=== PATIENT | male | born 1965 | race Caucasian/White ===

== ENCOUNTER 2016-12-13 10:09 | Emergency (ER) | payer BC ==
[2016-12-13] MEDS ORDERED: IBUPROFEN 600 MG TABLET PO ONE (10:38)
[2016-12-13] MEDS ORDERED: PREDNISONE 20 MG TAB PO ONE (10:38)
[2016-12-13] MEDS ORDERED: IPRATROPIUM/ALBUTEROL (0.5MG/3MG) NEB INH ONE (10:38)
--- NOTE | 2016-12-13 10:43 | Emergency Department Record ---
History of Present Illness - General Chief Complaint: Cough Stated Complaint: COUGHING/FEVER Time Seen by Provider: 12/13/16 10:34 Source: Patient, Family Mode of Arrival: Ambulatory Limitations: No limitations - History of Present Illness Initial Comments: 51 yo male presents with a cough that has been off and on for "3 months". The last day he has developed fevers, cough, congestion, body aches, headaches. He has a history of asthma. He has used his inhaler at home. No NVD. No rash. No sore throat. MD Complaint: Cough, Fever, Nasal congestion, Sinus pain Onset/Timin -: Days(s) Severity scale (1-10): 9 Consistency: Constant Improves With: Nothing Worsens With: Other (cough) Associated Symptoms: Cough, Fever, Headache, Myalgias, Nasal congestion, Rhinorrhea Treatments Prior to Arrival: None - Related Data Home Medications Medication Instructions Recorded Confirmed Last Taken Dicyclomine HCl [Bentyl] 20 mg PO DAILY 03/15/15 12/13/16 1 Day Ago Sumatriptan Succinate [Imitrex] 50 mg PO ASDIR 03/15/15 12/13/16 1 Day Ago Alprazolam [Alprazolam] 0.5 mg PO ASDIR 05/23/16 12/13/16 1 Day Ago Bupropion HCl [Bupropion HCl Sr] 200 mg PO BID 05/23/16 12/13/16 1 Day Ago Cyclobenzaprine HCl [Flexeril] 10 mg PO ASDIR PRN 05/23/16 12/13/16 1 Day Ago Hydrocodone/Acetaminophen 10 mg PO BIDDIUR 05/23/16 12/13/16 1 Day Ago [Hydrocodon-Acetaminophn 10-325] Mirabegron [Myrbetriq] 50 mg PO ASDIR PRN 05/23/16 12/13/16 1 Day Ago Tadalafil [Cialis] 5 mg PO ASDIR PRN 05/23/16 12/13/16 1 Day Ago Tramadol HCl [Tramadol HCl] 50 mg PO ASDIR PRN 05/23/16 12/13/16 1 Day Ago Venlafaxine HCl [Effexor Xr] 75 mg PO DAILY 05/23/16 12/13/16 1 Day Ago Butalb/Acetaminophen/Caffeine 1 tab PO ASDIR 12/13/16 12/13/16 Unknown [Wagnib-Edjyhkwu-Ehek 50-325-40] Levocetirizine Dihydrochloride 5 mg PO DAILY 12/13/16 12/13/16 Unknown [Xyzal] Previous Rx's Medication Instructions Recorded Hydrocodone/Acetaminophen [Ledbetter 1 tab PO Q6H PRN #10 tab 05/23/16 7.5mg/325mg] Azithromycin [Zithromax] 250 mg PO DAILY #4 tab 12/13/16 Methylprednisolone [Medrol Dose 4 mg PO UD #1 tab.ds.pk 12/13/16 Pack] Oseltamivir Phosphate [Tamiflu] 75 mg PO BID #10 capsule 12/13/16 Allergies Allergy/AdvReac Type Severity Reaction Status Date / Time No Known Drug Allergies Allergy Verified 12/09/16 15:19 Travel Screening - Travel/Exposure Within Last 30 Days Have you traveled within the last 30 days?: No Review of Systems Constitutional: Reports: Fever, Malaise. Denies: Chills Eyes: Denies: Eye discharge, Eye pain, Photophobia, Vision change ENT: Reports: Congestion. Denies: Ear pain, Throat pain Respiratory: Reports: Cough, Wheezes. Denies: Dyspnea, Hemoptysis, Stridor Cardiovascular: Denies: Chest pain, Palpitations, Syncope Endocrine: Reports: Fatigue. Denies: Polydipsia, Polyuria Gastrointestinal: Denies: Abdominal pain, Diarrhea, Nausea, Vomiting Genitourinary: Denies: Hematuria, Urgency Musculoskeletal: Reports: Myalgia. Denies: Arthralgia, Back pain, Joint swelling Skin: Denies: Bruising, Change in color, Rash Neurological: Reports: Headache. Denies: Numbness, Tremors, Vertigo, Weakness Psychiatric: Denies: Anxiety Hematological/Lymphatic: Denies: Blood Clots, Easy bleeding, Easy bruising, Swollen glands Past Medical History - SOCIAL HISTORY Smoking Status: Former smoker Alcohol Use: None Drug Use: None - RESPIRATORY Hx Respiratory Disorders: Yes Hx Sleep Apnea: Yes Hx of CPAP: Yes Comment:: seasonal allergies - CARDIOVASCULAR Hx Cardio Disorders: Yes Hx Hypertension: No - NEURO Hx Neuro Disorders: Yes Hx Headaches: Yes Hx of Migraines: Yes (last one 2 days ago) - GI Hx GI Disorders: Yes Hx Reflux: Yes Hx of Polyps: Yes - Hx Genitourinary Disorders: Yes Hx Bladder Problem: Yes Hx Prostate Problems: Yes - ENDOCRINE Hx Endocrine Disorders: No - MUSCULOSKELETAL Hx Musculoskeletal Disorders: No - PSYCH Hx Psych Problems: Yes Hx Anxiety: Yes Hx Depression: Yes - HEMATOLOGY/ONCOLOGY Hx Hematology/Oncology Disorders: Yes Hx Cancer: Yes (skin-basal, squamous cell) Family Medical History Any Significant Family History?: Yes Hx Cancer: Mother Hx Heart Disease: Father Hx HTN: Mother Hx Stroke: Father Physical Exam - General General Appearance: Alert, Oriented x3, Cooperative, No acute distress Limitations: No limitations - Head Head exam: Normal inspection - Eye Eye exam: Normal appearance, PERRL. negative: Conjunctival injection, Periorbital swelling - ENT ENT exam: Normal exam, Mucous membranes moist, Normal orophraynx Ear exam: Normal external inspection. negative: External canal tenderness Nasal Exam: Discharge (clear), Sinus tenderness. negative: Normal inspection Mouth exam: Normal external inspection, Tongue normal Teeth exam: Normal inspection. negative: Dental caries Throat exam: Normal inspection. negative: Tonsillar erythema, Tonsillar exudate - Neck Neck exam: Normal inspection, Full ROM. negative: Lymphadenopathy, Tenderness - Respiratory Respiratory exam: Decreased breath sounds, Prolonged expiratory. negative: Accessory muscle use, Rales, Respiratory distress, Rhonchi, Stridor, Wheezes - Cardiovascular Cardiovascular Exam: Regular rate, Normal rhythm, Normal heart sounds - GI/Abdominal GI/Abdominal exam: Soft. negative: Tenderness - Rectal Rectal exam: Deferred - exam: Deferred - Extremities Extremities exam: Normal inspection, Full ROM, Normal capillary refill. negative: Tenderness - Back Back exam: Reports: Normal inspection, Full ROM. Denies: Muscle spasm, Rash noted, Tenderness - Neurological Neurological exam: Alert, Normal gait, Oriented X3 - Psychiatric Psychiatric exam: Normal affect, Normal mood - Skin Skin exam: Dry, Intact, Normal color, Warm Course Vital Signs 12/13/16 10:13 Temperature 98.8 F Pulse Rate 94 H Respiratory 20 Rate Blood Pressure 117/79 Pulse Ox 94 L - Reevaluation(s) Reevaluation #1: Influenza is negative Depo-Medrol ordered 12/13/16 11:15 Reevaluation #2: CXR was negative Given his cough, body aches and onset in the last day I explained that I recommend Tamiflu in the event we have a false positive swab He will treated with steroids and Zithromax in the event this is bacteria we discussed close follow up and reasons to return to the ED 12/13/16 11:32 Disposition Disposition: Discharge Clinical Impression: Bronchitis Sinusitis Qualifiers: Sinusitis location: frontal Chronicity: acute Recurrence: non-recurrent Qualified Code(s): J01.10 - Acute frontal sinusitis, unspecified Disposition: Home, Self-Care Condition: (1) Good Instructions: Sinusitis (ED), Acute Bronchitis (ED) Additional Instructions: Rest and stay well hydrated Return if worse, fever, vomiting, short of breath or any new concerns. Prescriptions: Methylprednisolone [Medrol Dose Pack] 4 mg PO UD #1 tab.ds.pk Oseltamivir Phosphate [Tamiflu] 75 mg PO BID #10 capsule Azithromycin [Zithromax] 250 mg PO DAILY #4 tab Forms: Patient Portal Access Time of Disposition: 11:35
[2016-12-13 10:56] LABS: INFLUENZA A NEGATIVE (NEGATIVE); INFLUENZA B NEGATIVE (NEGATIVE)
[2016-12-13] MEDS ORDERED: METHYLPREDNISOLONE 80MG/VIAL IM ONE (11:18)
[2016-12-13] MEDS ORDERED: OSTELTAMIVIR 75 MG CAP PO ONE (11:31)
[2016-12-13] MEDS ORDERED: AZITHROMYCIN 500 MG TABLET PO ONE (11:31)
--- NOTE | 2016-12-18 10:01 | RADIOLOGY REPORT ---
EXAM: CHEST, TWO VIEWS HISTORY: COUGH. TECHNIQUE: Frontal and lateral views of the chest were obtained. Comparison: 11/08/06 chest. FINDINGS: The heart size is normal. Minimal scarring in the left lung base. The lungs are otherwise clear. No pneumothorax. IMPRESSION: NO ACUTE CARDIOPULMONARY PROCESS. JOB NUMBER: [id number] [facility]
== END 2016-12-13 11:56 | disposition home or self-care (01) ==
LOC: ER 10:09
DX: J20.9 Acute bronchitis, unspecified (principal); J01.10 Acute frontal sinusitis, unspecified
CPT/HCPCS: 71020; 87400; 94640; 96372; 99283; 99284; J1040

== ENCOUNTER 2017-04-27 13:05 | Emergency (ER) | payer BC ==
--- NOTE | 2017-04-27 13:25 | Emergency Department Record ---
History of Present Illness - General Chief complaint: Extremity Problem Stated complaint: RED SPOT ON LEFT LEG Time Seen by Provider: 04/27/17 13:13 Source: Patient, Family Mode of Arrival: Ambulatory Limitations: No limitations - History of Present Illness Initial comments: 51 yo male presents with a rash to the left lower calf that started yesterday. No trauma. He does not recall a bite or insect sting. It is somewhat achy. It does not itch significantly. He has some associated calf pain. No cough or chest pain. He denies history of DVT. There is a strong family history of DVT. No blistering, no vesicles. No weeping. No calf swelling today. PCP Hankenson. BARCENAS Complaint: Extremity pain, Other (left leg rash) Onset/Timin -: Days(s) Location: Left, Lower Leg History of Same: No Radiation: None Quality: Aching, Dull Consistency: Constant Improves with: Nothing Worsens with: Nothing Associated Symptoms: Denies other symptoms - Related Data Home Medications Medication Instructions Recorded Confirmed Last Taken Dicyclomine HCl [Bentyl] 20 mg PO DAILY 03/15/15 04/27/17 1 Day Ago ~12/08/16 Sumatriptan Succinate [Imitrex] 50 mg PO ASDIR 03/15/15 04/27/17 1 Day Ago ~12/08/16 Alprazolam [Alprazolam] 0.5 mg PO ASDIR 05/23/16 04/27/17 1 Day Ago ~12/08/16 Bupropion HCl [Bupropion HCl Sr] 200 mg PO BID 05/23/16 04/27/17 1 Day Ago ~12/08/16 Cyclobenzaprine HCl [Flexeril] 10 mg PO ASDIR PRN 05/23/16 04/27/17 1 Day Ago ~12/08/16 Hydrocodone/Acetaminophen 10 mg PO BIDDIUR 05/23/16 04/27/17 1 Day Ago [Hydrocodon-Acetaminophn 10-325] ~12/08/16 Mirabegron [Myrbetriq] 50 mg PO ASDIR PRN 05/23/16 04/27/17 1 Day Ago ~12/08/16 Tadalafil [Cialis] 5 mg PO ASDIR PRN 05/23/16 04/27/17 1 Day Ago ~12/08/16 Tramadol HCl [Tramadol HCl] 50 mg PO ASDIR PRN 05/23/16 04/27/17 1 Day Ago ~12/08/16 Venlafaxine HCl [Effexor Xr] 75 mg PO DAILY 05/23/16 04/27/17 1 Day Ago ~12/08/16 Butalb/Acetaminophen/Caffeine 1 tab PO ASDIR 12/13/16 04/27/17 Unknown [Owlddv-Zbvhvfbz-Qerw 50-325-40] Levocetirizine Dihydrochloride 5 mg PO DAILY 12/13/16 04/27/17 Unknown [Xyzal] Previous Rx's Medication Instructions Recorded Hydrocodone/Acetaminophen [Corwith 1 tab PO Q6H PRN #10 tab 05/23/16 7.5mg/325mg] Cephalexin [Keflex] 500 mg PO TID #21 cap 04/27/17 Methylprednisolone [Medrol Dose 4 mg PO DAILY #1 tab.ds.pk 04/27/17 Pack] Allergies Allergy/AdvReac Type Severity Reaction Status Date / Time No Known Drug Allergies Allergy Verified 12/09/16 15:19 Travel Screening - Travel/Exposure Within Last 30 Days Have you traveled within the last 30 days?: No Review of Systems Constitutional: Denies: Chills, Fever, Malaise, Weakness Eyes: Denies: Eye discharge, Eye pain, Photophobia, Vision change ENT: Denies: Congestion, Throat pain Respiratory: Denies: Cough, Dyspnea, Hemoptysis, Stridor, Wheezes Cardiovascular: Denies: Chest pain, Palpitations, Syncope Endocrine: Denies: Fatigue, Polydipsia, Polyuria Gastrointestinal: Denies: Abdominal pain, Diarrhea, Nausea, Vomiting Genitourinary: Denies: Dysuria, Frequency, Hematuria, Urgency Musculoskeletal: Denies: Arthralgia, Back pain, Joint swelling, Myalgia Skin: Reports: As per HPI, Change in color, Rash Neurological: Denies: Headache, Numbness, Weakness Psychiatric: Denies: Anxiety Hematological/Lymphatic: Denies: Anemia, Blood Clots, Easy bleeding, Easy bruising, Swollen glands Past Medical History - SOCIAL HISTORY Smoking Status: Former smoker - RESPIRATORY Hx Respiratory Disorders: Yes Hx Sleep Apnea: Yes Hx of CPAP: Yes Comment:: seasonal allergies - CARDIOVASCULAR Hx Cardio Disorders: Yes Hx Hypertension: No - NEURO Hx Neuro Disorders: Yes Hx Headaches: Yes Hx of Migraines: Yes (last one 2 days ago) - GI Hx GI Disorders: Yes Hx Reflux: Yes Hx of Polyps: Yes - Hx Genitourinary Disorders: Yes Hx Bladder Problem: Yes Hx Prostate Problems: Yes - ENDOCRINE Hx Endocrine Disorders: No - MUSCULOSKELETAL Hx Musculoskeletal Disorders: No - PSYCH Hx Psych Problems: Yes Hx Anxiety: Yes Hx Depression: Yes - HEMATOLOGY/ONCOLOGY Hx Hematology/Oncology Disorders: Yes Hx Cancer: Yes (skin-basal, squamous cell) Family Medical History Any Significant Family History?: Yes Hx Cancer: Mother Hx Heart Disease: Father Hx HTN: Mother Hx Stroke: Father Physical Exam - General General Appearance: Alert, Oriented x3, Cooperative, No acute distress Limitations: No limitations - Head Head exam: Normal inspection - Eye Eye exam: Normal appearance - ENT ENT exam: Normal exam Ear exam: Normal external inspection Nasal Exam: Normal inspection Mouth exam: Normal external inspection - Neck Neck exam: Normal inspection - Rectal Rectal exam: Deferred - exam: Deferred - Extremities Extremities exam: Calf tenderness (mild over the rash), Full ROM, Normal capillary refill. negative: Normal inspection, Pedal edema, Tenderness Image of Full Body: 1 - patchy, erythematous, flat rash to the mid distal LLE, no abnormal warmth, no blisters or vesicle, superficial feeling on palpation, most CW superficial vasculitis. - Back Back exam: Reports: Normal inspection - Neurological Neurological exam: Alert, Oriented X3 - Psychiatric Psychiatric exam: Normal affect, Normal mood - Skin Skin exam: Erythema, Intact, Petechiae. negative: Cyanosis, Diaphoretic, Mottled Distribution of rash: LLE Description of rash: Macular, Petechial. negative: Blisters, Bullous, Fluctuant , Indurated, Urticarial, Vesicular Course Vital Signs 04/27/17 13:10 Temperature 98.2 F Pulse Rate 88 Respiratory 20 Rate Blood Pressure 124/79 Pulse Ox 99 - Reevaluation(s) Reevaluation #1: The labs were reviewed No acute changes on CBC CRP is mildly elevated at 1.9 as is the D-dimer at 0.9 I discussed the results with the patient I do recommend a lower leg doppler to rule out DVT given his strong family history of 4 out of 7 siblings with DVT/PE. [place] [facility] [place] Norman who accepts the patient for a doppler. 04/27/17 13:59 Medical Decision Making - Lab Data Result diagrams: 04/27/17 13:25 04/27/17 13:25 Disposition Disposition: Transfer Clinical Impression: Rash, Pain of left calf Transfer To: [facility] Reason For Transfer: No doppler at [facility] Accepting Physician: Emerson Time Discussed w/Accepting Physician: 14:09 Condition: (1) Good Instructions: Acute Rash (ED) Additional Instructions: Go directly to [facility] ER for an US of the leg Call your doctor tomorrow for close follow up this week Prescriptions: Cephalexin [Keflex] 500 mg PO TID #21 cap Methylprednisolone [Medrol Dose Pack] 4 mg PO DAILY #1 tab.ds.pk Forms: Patient Portal Access Time of Disposition: 14:11 Quality - Quality Measures Quality Measures: N/A - Blood Pressure Screening View Details: Yes Blood Pressure Classification: Pre-Hypertensive BP Reading Systolic Measurement: 124 Diastolic Measurement: 79 Screening for High Blood Pressure: < Pre-Hypertensive BP, F/U Documented > [ G8950] Pre-Hypertensive Follow-up Interventions: Referral to alternative/primary care provider.
[2017-04-27 13:31] LABS: BASO % 0.8 % (0-6); EOS % 5.3 % (0-6); GRAN % 51.2 % (47-80); HEMATOCRIT 40.4 % (42.0-52.0); HEMOGLOBIN 13.7 gm/dl (14.0-18.0); LYMPH % 34.8 % (16-45); MEAN CELL VOLUME 93.1 fl (81-97); MEAN CORPUSCULAR HGB CONC 33.9 g/dl (32-36); MEAN PLATELET VOLUME 9.1 fl (7.4-10.4); MONO % 7.9 % (0-9); PLATELET COUNT 347 K/uL (130-400); RED BLOOD COUNT 4.34 M/uL (4.40-5.70); RED CELL DISTRIBUTION WIDTH 13.3 % (11.5-14.5); WHITE BLOOD COUNT W/O DIFF 6.5 K/uL (4.2-12.2)
[2017-04-27 13:32] LABS: MEAN CORPUSCULAR HEMOGLOBIN 31.5 pg (27-33)
[2017-04-27 13:45] LABS: ANION GAP 7.8 (7-16); BLOOD UREA NITROGEN 17 mg/dL (9-20); C-REACTIVE PROTEIN 1.9 mg/dL (0.0-0.9); CARBON DIOXIDE 23.2 mmol/L (22-30); CREATININE 0.9 mg/dL (0.66-1.25); EST GLOMERULAR FILTRATION RATE > 60 ml/min; GLUCOSE,RANDOM 119 mg/dL (70-110)
== END 2017-04-27 14:32 | disposition short-term general hospital (02) ==
LOC: ER 13:05
DX: M79.662 Pain in left lower leg (principal); R21 Rash and other nonspecific skin eruption
CPT/HCPCS: 80048; 85025; 85379; 86140; 99283

== ENCOUNTER 2018-02-27 10:48 | Emergency (ER) | payer BC ==
--- NOTE | 2018-02-27 11:08 | Emergency Department Record ---
History of Present Illness - General Chief Complaint: Ankle/Foot Injury Stated Complaint: RIGHT HEEL PAIN Time Seen by Provider: 02/27/18 10:49 Source: Patient Mode of Arrival: Ambulatory Limitations: No limitations - History of Present Illness Initial Comments: The patient is here for R heel pain for 5-6 weeks. The pain is worse at the end of the day at work. He denies any injury or trauma and states the Naprosyn is not helping. The patient was unable to see his PCP so he decided to come to the ER. MD Complaint: Other Onset/Timin -: Week(s) Place: Home Severity scale (1-10): 6 Improves With: Nothing Worsens With: Weight bearing Associated Symptoms: Ambulatory - Related Data Home Medications Medication Instructions Recorded Confirmed Last Taken Cyclobenzaprine HCl 10 mg PO TIDAC PRN 02/27/18 02/27/18 Unknown Naproxen 500 mg PO BID 02/27/18 02/27/18 Unknown Allergies Allergy/AdvReac Type Severity Reaction Status Date / Time No Known Drug Allergies Allergy Verified 12/09/16 15:19 Travel Screening - Travel/Exposure Within Last 30 Days Have you traveled within the last 30 days?: No Review of Systems Constitutional: Denies: Chills, Fever Eyes: Denies: Eye discharge ENT: Denies: Congestion Respiratory: Denies: Cough, Dyspnea Past Medical History - SOCIAL HISTORY Smoking Status: Former smoker - RESPIRATORY Hx Respiratory Disorders: Yes Hx Sleep Apnea: Yes Hx of CPAP: Yes Comment:: seasonal allergies - CARDIOVASCULAR Hx Cardio Disorders: Yes Hx Hypertension: No - NEURO Hx Neuro Disorders: Yes Hx Headaches: Yes Hx of Migraines: Yes (last one 2 days ago) - GI Hx GI Disorders: Yes Hx Reflux: Yes Hx of Polyps: Yes - Hx Genitourinary Disorders: Yes Hx Bladder Problem: Yes Hx Prostate Problems: Yes - ENDOCRINE Hx Endocrine Disorders: No - MUSCULOSKELETAL Hx Musculoskeletal Disorders: No - PSYCH Hx Psych Problems: Yes Hx Anxiety: Yes Hx Depression: Yes - HEMATOLOGY/ONCOLOGY Hx Hematology/Oncology Disorders: Yes Hx Cancer: Yes (skin-basal, squamous cell) Family Medical History Any Significant Family History?: Yes Hx Cancer: Mother Hx Heart Disease: Father Hx HTN: Mother Hx Stroke: Father Physical Exam - General General Appearance: Alert, Oriented x3, Cooperative, No acute distress - Head Head exam: Atraumatic, Normocephalic, Normal inspection - Eye Eye exam: Normal appearance, PERRL - Extremities Extremities exam: Normal inspection (There is not swelling, erythema, or bruising. ), Full ROM, Normal capillary refill, Other (the achilles tendon is nontender.). negative: Joint swelling, Pedal edema, Tenderness (There is no specific tenderness to palpation over the calcaneus.) Course Vital Signs 02/27/18 10:51 Temperature 98.0 F Pulse Rate 71 Respiratory 18 Rate Blood Pressure 133/91 Pulse Ox 96 - Reevaluation(s) Reevaluation #1: I did discuss the issues with the patient and the need for F/U with Dr. Alexis. He understands and will F/U. 02/27/18 11:44 Medical Decision Making - Data Complexity MDM Data: X-Ray Ordered and/or Reviewed (L Foot: Neg.) Disposition Disposition: Discharge Clinical Impression: Chronic heel pain Qualifiers: Laterality: left Qualified Code(s): M79.672 - Pain in left foot Disposition: Home, Self-Care Condition: (2) Stable Instructions: Arthralgia (ED) Additional Instructions: Please continue your regular home medicines and see your family doctor Friday as planned and also Dr. Alexis on Friday if possible. Please ice the area when possible and use a heel cup. Return to the ER for any worsening symptoms. Referrals: [facility] [Provider Group] Forms: Patient Portal Access Time of Disposition: 11:39 Quality - Quality Measures Quality Measures: N/A - Blood Pressure Screening View Details: Yes Does Patient Have Any of the Following: No Blood Pressure Classification: Hypertensive Reading Systolic Measurement: 133 Diastolic Measurement: 91 Screening for High Blood Pressure: < First Hypertensive BP, F/U Documented > [ G8950] First Hypertensive Follow-up Interventions: Referral to alternative/primary care provider.
--- NOTE | 2018-03-01 10:17 | RADIOLOGY REPORT ---
DATE: 02/27/2018. EXAM: RIGHT FOOT. HISTORY: Injury. TECHNIQUE: Three views of the right foot were performed. FINDINGS: No evidence of fracture or dislocation. No lytic or blastic lesion. Small calcaneal spur. IMPRESSION: NO EVIDENCE OF FRACTURE OR DISLOCATION. A SMALL CALCANEAL SPUR. JOB NUMBER: [id number] MTDD
== END 2018-02-27 11:45 | disposition home or self-care (01) ==
LOC: ER 10:48
DX: M79.671 Pain in right foot (principal); G89.29 Other chronic pain; Z87.891 Personal history of nicotine dependence
CPT/HCPCS: 99283

== ENCOUNTER 2018-05-31 15:36 | Emergency (ER) | payer BC ==
--- NOTE | 2018-05-31 16:03 | Emergency Department Record ---
History of Present Illness - General Chief complaint: Poison karine/oak/sumac exposure Stated complaint: POISON KARINE Time Seen by Provider: 05/31/18 16:00 Source: Patient, RN notes reviewed Mode of Arrival: Ambulatory - History of Present Illness Initial comments: rash for 2 days and itchy and working in the yard Onset/Timin -: Hour(s) Location: Generalized Quality: Other Consistency: Constant Improves with: None Worsens with: None Context: Other Associated symptoms: Itching Treatments Prior to Arrival: None - Related Data Previous Rx's Medication Instructions Recorded Prednisone [Prednisone 10Mg] 10 mg PO ASDIR #30 tab 05/31/18 Allergies Allergy/AdvReac Type Severity Reaction Status Date / Time No Known Drug Allergies Allergy Verified 05/31/18 15:41 Travel Screening - Travel/Exposure Within Last 30 Days Have you traveled within the last 30 days?: Yes Location Detail:: [place] - Travel/Exposure Within Last Year Have you traveled outside the [place] in the last year?: No - Additonal Travel Details Have you been exposed to anyone with a communicable illness?: No - Travel Symptoms Symptom Screening: None Review of Systems Reviewed: No additional complaints except as noted below Constitutional: Reports: As per HPI. Denies: Chills, Fever, Malaise, Night sweats, Weakness, Weight change Eyes: Reports: As per HPI. Denies: Eye discharge, Eye pain, Photophobia, Vision change ENT: Reports: As per HPI. Denies: Congestion, Dental pain, Ear pain, Epistaxis , Hearing loss, Throat pain Respiratory: Reports: As per HPI. Denies: Cough, Dyspnea, Hemoptysis, Stridor, Wheezes Cardiovascular: Reports: As per HPI. Denies: Arrhythmia, Chest pain, Dyspnea on exertion, Edema, Murmurs, Orthopnea, Palpitations, Paroxysmal nocturnal dyspnea, Rheumatic Fever, Syncope Endocrine: Reports: As per HPI. Denies: Fatigue, Heat or cold intolerance, Polydipsia, Polyuria Gastrointestinal: Reports: As per HPI. Denies: Abdominal pain, Constipation, Diarrhea, Hematemesis, Hematochezia, Melena, Nausea, Vomiting Genitourinary: Reports: As per HPI. Denies: Dysuria, Frequency, Hematuria, Incontinence, Retention, Testicular pain, Testicular mass, Urgency Musculoskeletal: Reports: As per HPI. Denies: Arthralgia, Back pain, Gout, Joint swelling, Myalgia, Neck pain Skin: Reports: As per HPI, Rash. Denies: Bruising, Change in color, Change in hair/nails, Lesions, Pruritus Neurological: Reports: As per HPI. Denies: Abnormal gait, Confusion, Headache, Numbness, Paresthesias, Seizure, Tingling, Tremors, Vertigo, Weakness Psychiatric: Reports: As per HPI. Denies: Anxiety, Auditory hallucinations, Depression, Homicidal thoughts, Suicidal thoughts, Visual hallucinations Hematological/Lymphatic: Reports: As per HPI. Denies: Anemia, Blood Clots, Easy bleeding, Easy bruising, Swollen glands Past Medical History - SOCIAL HISTORY Smoking Status: Former smoker Alcohol Use: None Drug Use: None - RESPIRATORY Hx Respiratory Disorders: Yes Hx Sleep Apnea: Yes Hx of CPAP: Yes Comment:: seasonal allergies - CARDIOVASCULAR Hx Cardio Disorders: Yes Hx Hypertension: No - NEURO Hx Neuro Disorders: Yes Hx Headaches: Yes Hx of Migraines: Yes (last one 2 days ago) - GI Hx GI Disorders: Yes Hx Reflux: Yes Hx of Polyps: Yes - Hx Genitourinary Disorders: Yes Hx Bladder Problem: Yes Hx Prostate Problems: Yes - ENDOCRINE Hx Endocrine Disorders: No - MUSCULOSKELETAL Hx Musculoskeletal Disorders: No - PSYCH Hx Psych Problems: Yes Hx Anxiety: Yes Hx Depression: Yes - HEMATOLOGY/ONCOLOGY Hx Hematology/Oncology Disorders: Yes Hx Cancer: Yes (skin-basal, squamous cell) Family Medical History Any Significant Family History?: Yes Hx Cancer: Mother Hx Heart Disease: Father Hx HTN: Mother Hx Stroke: Father Physical Exam - General General Appearance: Alert, Oriented x3, Cooperative, No acute distress - Head Head exam: Normal inspection - Eye Eye exam: Normal appearance, PERRL Pupils: Normal accommodation - ENT ENT exam: Normal exam, Mucous membranes moist, Normal external ear exam, Normal orophraynx, TM's normal bilaterally Ear exam: Normal external inspection. negative: External canal tenderness Nasal Exam: Normal inspection. negative: Discharge, Sinus tenderness Mouth exam: Normal external inspection, Tongue normal Teeth exam: Normal inspection. negative: Dental caries Throat exam: Normal inspection. negative: Tonsillar erythema, Tonsillar exudate - Neck Neck exam: Normal inspection, Full ROM. negative: Tenderness - Respiratory Respiratory exam: Normal lung sounds bilaterally. negative: Respiratory distress - Cardiovascular Cardiovascular Exam: Regular rate, Normal rhythm, Normal heart sounds - GI/Abdominal GI/Abdominal exam: Soft, Normal bowel sounds. negative: Tenderness - Rectal Rectal exam: Deferred - exam: Deferred - Extremities Extremities exam: Normal inspection, Full ROM, Normal capillary refill. negative: Tenderness - Back Back exam: Reports: Normal inspection, Full ROM. Denies: Muscle spasm, Rash noted, Tenderness - Neurological Neurological exam: Alert, Normal gait, Oriented X3, Reflexes normal - Psychiatric Psychiatric exam: Normal affect, Normal mood - Skin Skin exam: Rash (reash of poison karine, on both arms and the right flank area) Course Vital Signs 05/31/18 15:44 Temperature 98.2 F Pulse Rate 82 Respiratory 18 Rate Blood Pressure 136/79 Pulse Ox 99 Disposition Clinical Impression: Poison karine dermatitis Disposition: Home, Self-Care Condition: (1) Good Instructions: Poison Karine (ED) Additional Instructions: calamine lotion as needed benadryl or claritan pills for itching follow up with Dr. Hudson in 5 days Prescriptions: Prednisone [Prednisone 10Mg] 10 mg PO ASDIR #30 tab Forms: Patient Portal Access Time of Disposition: 16:08 Quality - Quality Measures Quality Measures: N/A - Blood Pressure Screening Does Patient Have Any of the Following: No Blood Pressure Classification: Pre-Hypertensive BP Reading Systolic Measurement: 136 Diastolic Measurement: 79 Screening for High Blood Pressure: < Pre-Hypertensive BP, F/U Documented > [ G8950] Pre-Hypertensive Follow-up Interventions: Referral to alternative/primary care provider.
[2018-05-31] MEDS ORDERED: METHYLPREDNISOLONE 80MG/VIAL IM ONE (16:09)
== END 2018-05-31 16:28 | disposition home or self-care (01) ==
LOC: ER 15:36
DX: L23.7 Allergic contact dermatitis due to plants, except food (principal); Z87.891 Personal history of nicotine dependence
CPT/HCPCS: 96372; 99282; 99283; J1040

== ENCOUNTER 2018-06-29 15:01 | Emergency (ER) | payer BC ==
[2018-06-29] MEDS ORDERED: KETOROLAC 30 MG/ML VIAL IVP ONE (15:16)
[2018-06-29] MEDS ORDERED: DIPHENHYDRAMINE HCL 50 MG/ML VIAL IVP ONE (15:16)
--- NOTE | 2018-06-29 15:16 | Emergency Department Record ---
History of Present Illness - General Chief Complaint: Headache Migraine Stated Complaint: MIGRAINE Time Seen by Provider: 06/29/18 15:05 Source: Patient, Family Mode of Arrival: Ambulatory Limitations: No limitations - History of Present Illness Initial Comments: 52 yo male presents with a headache typical of his migraine headaches. He awoke yesterday with the migraine. He has about a 20+ year history of migraines. The fall is a seasonal time when migraines do occur more frequently for him. He has some nausea and vomiting. No fever. He is light sensitive. No new or different symptoms. No fever. No recent head injuries or illness. Odors such as cologne make it worse which is a typical feature. MD Complaint: "Migraine" -: Days(s) (1) Onset Description: Gradual, Awoke with symptoms Location: Frontal, Occipital Severity: Moderate Quality: Aching, Similar to previous headaches Consistency: Constant Improves With: Rest Worsens With: Light, Noise, Other (Oders) Context: Other Associated Symptoms: Nausea Treatments Prior to Arrival: Migraine medication - Related Data Allergies Allergy/AdvReac Type Severity Reaction Status Date / Time No Known Drug Allergies Allergy Verified 06/29/18 15:09 Review of Systems Constitutional: Denies: Chills, Fever, Malaise, Weakness Eyes: Reports: Photophobia. Denies: Eye discharge, Eye pain ENT: Denies: Congestion, Throat pain Respiratory: Denies: Cough, Dyspnea, Hemoptysis Cardiovascular: Denies: Chest pain, Palpitations, Syncope Endocrine: Denies: Fatigue Gastrointestinal: Reports: Nausea. Denies: Abdominal pain, Diarrhea Genitourinary: Denies: Dysuria, Frequency, Hematuria Musculoskeletal: Denies: Arthralgia, Back pain, Myalgia, Neck pain Skin: Denies: Bruising, Change in color, Rash Neurological: Reports: Headache. Denies: Abnormal gait, Confusion, Numbness, Tingling, Vertigo, Weakness Psychiatric: Denies: Anxiety Hematological/Lymphatic: Denies: Blood Clots, Easy bleeding, Easy bruising Past Medical History - SOCIAL HISTORY Smoking Status: Former smoker Drug Use: None - RESPIRATORY Hx Respiratory Disorders: Yes Hx Sleep Apnea: Yes Hx of CPAP: Yes Comment:: seasonal allergies - CARDIOVASCULAR Hx Cardio Disorders: Yes Hx Hypertension: No - NEURO Hx Neuro Disorders: Yes Hx Headaches: Yes Hx of Migraines: Yes (last one 2 days ago) - GI Hx GI Disorders: Yes Hx Reflux: Yes Hx of Polyps: Yes - Hx Genitourinary Disorders: Yes Hx Bladder Problem: Yes Hx Prostate Problems: Yes - ENDOCRINE Hx Endocrine Disorders: No - MUSCULOSKELETAL Hx Musculoskeletal Disorders: No - PSYCH Hx Psych Problems: Yes Hx Anxiety: Yes Hx Depression: Yes - HEMATOLOGY/ONCOLOGY Hx Hematology/Oncology Disorders: Yes Hx Cancer: Yes (skin-basal, squamous cell) Family Medical History Hx Cancer: Mother Hx Heart Disease: Father Hx HTN: Mother Hx Stroke: Father Physical Exam - General General Appearance: Alert, Oriented x3, Cooperative, No acute distress Limitations: No limitations - Head Head exam: Atraumatic, Normocephalic, Normal inspection - Eye Eye exam: Normal appearance, PERRL, EOMI. negative: Conjunctival injection, Nystagmus, Periorbital swelling - ENT ENT exam: Normal exam Ear exam: Normal external inspection Nasal Exam: Normal inspection Mouth exam: Normal external inspection - Neck Neck exam: Normal inspection. negative: Meningismus, Tenderness - Respiratory Respiratory exam: Normal lung sounds bilaterally. negative: Respiratory distress - Cardiovascular Cardiovascular Exam: Regular rate, Normal rhythm, Normal heart sounds Peripheral Pulses: 2+: Radial (R), Radial (L) - GI/Abdominal GI/Abdominal exam: Soft. negative: Tenderness - Rectal Rectal exam: Deferred - exam: Deferred - Extremities Extremities exam: Normal inspection, Full ROM, Normal capillary refill. negative: Pedal edema, Tenderness - Back Back exam: Denies: CVA tenderness (R), CVA tenderness (L) - Neurological Neurological exam: Alert, CN II-XII intact, Normal gait, Oriented X3. negative : Altered, Motor sensory deficit - Psychiatric Psychiatric exam: Normal affect, Normal mood. negative: Agitated, Anxious - Skin Skin exam: Dry, Intact, Normal color, Warm. negative: Abrasion, Cyanosis, Diaphoretic, Erythema, Mottled Course - Reevaluation(s) Reevaluation #1: 06/29/18 16:26 The patient is getting some relief but not full relief at this time. Nausea is much improved. 06/29/18 17:00 The symptoms are now controlled and he is ready for DC Decadron provided prior to DC as well. We discussed home care and reasons to return to the ED as well as follow up with the PCP Disposition Disposition: Discharge Clinical Impression: Migraine Qualifiers: Migraine type: unspecified Status migrainosus presence: without status migrainosus Intractability: not intractable Qualified Code(s): G43.909 - Migraine, unspecified, not intractable, without status migrainosus Disposition: Home, Self-Care Condition: (1) Good Instructions: Migraine Headache (ED) Additional Instructions: Call your family doctor. Call to schedule the next available appointment for a recheck. Return to ED if your symptoms worsen or if you have any new concerns. Review the final Emergency Record and test results with your doctor on follow up Forms: Patient Portal Access Time of Disposition: 17:00 Quality - Quality Measures Quality Measures: N/A, Headache (All Ages) - Headache: Neuroimaging Quality Measure: Measure #419: Overuse of Neuroimaging ICD10 Codes Entered: Yes Neurological Exam: Patient had a normal neurological exam. [G9535] Headache: Use of Neuroimaging: < CTA, CT, MRA or MRI was NOT ordered > [G9534] - Blood Pressure Screening Does Patient Have Any of the Following: No Blood Pressure Classification: Hypertensive Reading Systolic Measurement: 140 Diastolic Measurement: 95 Screening for High Blood Pressure: < Pre-Hypertensive BP, F/U Documented > [ G8950] Pre-Hypertensive Follow-up Interventions: Referral to alternative/primary care provider.
[2018-06-29] MEDS ORDERED: ONDANSETRON HCL IV 4 MG/2 ML VIAL IVP ONE (15:18)
[2018-06-29] MEDS ORDERED: HYDROMORPHONE HCL 2 MG/ML VIAL IVP ONE (16:26)
[2018-06-29] MEDS ORDERED: DEXAMETHASONE SOD PHOSPHATE 10MG/ML VIAL IVP ONE (16:58)
== END 2018-06-29 17:27 | disposition home or self-care (01) ==
LOC: ER 15:01
DX: G43.909 Migraine, unspecified, not intractable, without status migrainosus (principal); R11.2 Nausea with vomiting, unspecified; Z87.891 Personal history of nicotine dependence
CPT/HCPCS: 99284 ×2; 96374; 96375; J1885; J2405; J1170; J1100; J1200

== ENCOUNTER 2019-01-22 16:18 | Emergency (ER) | payer BC ==
--- NOTE | 2019-01-22 16:39 | Emergency Department Record ---
History of Present Illness - General Chief Complaint: Ankle/Foot Injury Stated Complaint: HEEL PAIN Source: Patient Mode of Arrival: Ambulatory Limitations: No limitations - History of Present Illness Initial Comments: 53 yo male presents with 3 weeks of right heel pain. He denies any specific injury. No fever, chills, redness, or swelling. No abnormal warmth. In the past he had plantar fasciitis. He feels like this is different. No weakness, numbness or tingling. No other joints hurt or pain. No history of gout. No achilles pain or tenderness. No dorsal foot tenderness. MD Complaint: Other (Heel pain) Onset/Timin -: Week(s) Injury: Foot: Right Type of Injury: Unknown Severity: Moderate Improves With: Nothing Worsens With: Nothing Associated Symptoms: Able to partially bear weight - Related Data Allergies Allergy/AdvReac Type Severity Reaction Status Date / Time No Known Drug Allergies Allergy Verified 01/22/19 16:22 Travel Screening - Travel/Exposure Within Last 30 Days Have you traveled within the last 30 days?: Yes Location Detail:: [place] - Travel/Exposure Within Last Year Have you traveled outside the [place] in the last year?: No - Additonal Travel Details Have you been exposed to anyone with a communicable illness?: No - Travel Symptoms Symptom Screening: None Review of Systems Constitutional: Denies: Chills, Fever, Malaise, Weakness Eyes: Denies: Eye discharge ENT: Denies: Congestion, Throat pain Respiratory: Denies: Cough Cardiovascular: Denies: Chest pain, Syncope Endocrine: Denies: Fatigue Gastrointestinal: Denies: Abdominal pain, Diarrhea, Nausea, Vomiting Genitourinary: Denies: Dysuria Musculoskeletal: Reports: As per HPI, Arthralgia Skin: Denies: Bruising, Change in color, Rash Neurological: Denies: Numbness, Tingling Psychiatric: Denies: Anxiety Past Medical History - SOCIAL HISTORY Smoking Status: Former smoker Drug Use: None - RESPIRATORY Hx Respiratory Disorders: Yes Hx Sleep Apnea: Yes Hx of CPAP: Yes Comment:: seasonal allergies - CARDIOVASCULAR Hx Cardio Disorders: Yes Hx Hypertension: No - NEURO Hx Neuro Disorders: Yes Hx Headaches: Yes Hx of Migraines: Yes (last one 2 days ago) - GI Hx GI Disorders: Yes Hx Reflux: Yes Hx of Polyps: Yes - Hx Genitourinary Disorders: Yes Hx Bladder Problem: Yes Hx Prostate Problems: Yes - ENDOCRINE Hx Endocrine Disorders: No - MUSCULOSKELETAL Hx Musculoskeletal Disorders: No - PSYCH Hx Psych Problems: Yes Hx Anxiety: Yes Hx Depression: Yes - HEMATOLOGY/ONCOLOGY Hx Hematology/Oncology Disorders: Yes Hx Cancer: Yes (skin-basal, squamous cell) Family Medical History Hx Cancer: Mother Hx Heart Disease: Father Hx HTN: Mother Hx Stroke: Father Physical Exam - General General Appearance: Alert, Oriented x3, Cooperative, No acute distress Limitations: No limitations - Head Head exam: Atraumatic, Normal inspection - Eye Eye exam: Normal appearance - ENT ENT exam: Normal exam Ear exam: Normal external inspection Nasal Exam: Normal inspection Mouth exam: Normal external inspection - Neck Neck exam: Normal inspection - Cardiovascular Peripheral Pulses: 2+: Dorsalis Pedis (R) - Extremities Extremities exam: Normal inspection, Full ROM, Normal capillary refill, Tenderness. negative: Calf tenderness, Joint swelling, Pedal edema Image of Feet: 1 - normal inspection, tender to palpation, no abnormal warmth or redness. The remainder of the foot is non tender and normal inspection - Back Back exam: Reports: Full ROM - Neurological Neurological exam: Alert, Oriented X3 - Psychiatric Psychiatric exam: Normal affect, Normal mood. negative: Agitated, Anxious - Skin Skin exam: Dry, Intact, Normal color, Warm. negative: Cyanosis, Erythema, Mottled, Pallor, Rash, Urticaria, Vesicles Type of lesion: negative: Abscess Course Vital Signs 01/22/19 16:29 Temperature 98.2 F Pulse Rate 78 Respiratory 18 Rate Blood Pressure 130/93 Pulse Ox 97 Disposition Disposition: Discharge Clinical Impression: Heel pain Qualifiers: Laterality: right Qualified Code(s): M79.671 - Pain in right foot Disposition: Home, Self-Care Condition: (1) Good Instructions: Plantar Fasciitis (ED), Heel Spur (ED) Additional Instructions: Call your doctor for the next available follow up appointment Return to the ER for a recheck if worse, any new concerns or questions Call Dr Bell for a podiatry follow up of the foot and heel pain Review this ER visit and the tests performed with your family doctor Referrals: RIANNA BELL D.P.M. [DOCTOR OF PODIATRY MEDICINE] - Forms: Patient Portal Access Time of Disposition: 17:26 Quality - Quality Measures Quality Measures: N/A - Blood Pressure Screening Does Patient Have Any of the Following: No Blood Pressure Classification: Hypertensive Reading Systolic Measurement: 130 Diastolic Measurement: 93 Screening for High Blood Pressure: < Pre-Hypertensive BP, F/U Documented > [ G8950] Pre-Hypertensive Follow-up Interventions: Referral to alternative/primary care provider.
--- NOTE | 2019-01-25 13:04 | RADIOLOGY REPORT ---
EXAM: RIGHT FOOT HISTORY: RIGHT HEEL PAIN FOR THREE WEEKS. NO KNOWN INJURY. TECHNIQUE: Three views of the right foot were obtained. Comparison: Right foot radiograph 02/27/18. FINDINGS: No fracture is seen. No evidence of [id number]. Tiny first metatarsal phalangeal joint osteophytes. Tiny exostosis arising along the dorsal cortex of the first metatarsal neck unchanged. Small plantar calcaneal enthesophytes/heel spur, unchanged from prior. IMPRESSION: 1. NO ACUTE OSSEOUS FINDINGS. 2. SMALL PLANTAR CALCANEAL ENTHESOPHYTES/HEEL SPUR, SIMILAR FROM 02/27/18 COMPARISON. JOB NUMBER: [id number] [facility]
== END 2019-01-22 17:31 | disposition home or self-care (01) ==
LOC: ER 16:18
DX: M79.671 Pain in right foot (principal)
CPT/HCPCS: 99283

== ENCOUNTER 2019-05-05 16:03 | Emergency (ER) | payer BC ==
--- NOTE | 2019-05-05 16:14 | Emergency Department Record ---
History of Present Illness - General Chief complaint: Swelling of legs Stated complaint: LT LEG SWELLING/BLOOD CLOT? Time Seen by Provider: 05/05/19 16:08 Source: Patient, RN notes reviewed - History of Present Illness Initial comments: LEFT ROB LER SWOLLEN AND RED FOR 1 WEEK and he went to the [facility] nurse and sent to the ED. - Related Data Previous Rx's Medication Instructions Recorded Cephalexin [Keflex] 500 mg PO QID #40 cap 05/05/19 Sulfamethoxazole/Trimethoprim 1 each PO BID #20 tablet 05/05/19 [Bactrim Ds Tablet] Allergies Allergy/AdvReac Type Severity Reaction Status Date / Time No Known Drug Allergies Allergy Verified 01/22/19 16:22 Review of Systems Reviewed: No additional complaints except as noted below Constitutional: Reports: As per HPI. Denies: Chills, Fever, Malaise, Night sweats, Weakness, Weight change Eyes: Reports: As per HPI. Denies: Eye discharge, Eye pain, Photophobia, Vision change ENT: Reports: As per HPI. Denies: Congestion, Dental pain, Ear pain, Epistaxis, Hearing loss, Throat pain Respiratory: Reports: As per HPI. Denies: Cough, Dyspnea, Hemoptysis, Stridor, Wheezes Cardiovascular: Reports: As per HPI. Denies: Arrhythmia, Chest pain, Dyspnea on exertion, Edema, Murmurs, Orthopnea, Palpitations, Paroxysmal nocturnal dyspnea, Rheumatic Fever, Syncope Endocrine: Reports: As per HPI. Denies: Fatigue, Heat or cold intolerance, Polydipsia, Polyuria Gastrointestinal: Reports: As per HPI. Denies: Abdominal pain, Constipation, Diarrhea, Hematemesis, Hematochezia, Melena, Nausea, Vomiting Genitourinary: Reports: As per HPI. Denies: Dysuria, Frequency, Hematuria, Incontinence, Retention, Testicular pain, Testicular mass, Urgency Musculoskeletal: Reports: As per HPI. Denies: Arthralgia, Back pain, Gout, Joint swelling, Myalgia, Neck pain Skin: Reports: As per HPI. Denies: Bruising, Change in color, Change in hair/nails, Lesions, Pruritus, Rash Neurological: Reports: As per HPI. Denies: Abnormal gait, Confusion, Headache, Numbness, Paresthesias, Seizure, Tingling, Tremors, Vertigo, Weakness Psychiatric: Reports: As per HPI. Denies: Anxiety, Auditory hallucinations, Depression, Homicidal thoughts, Suicidal thoughts, Visual hallucinations Hematological/Lymphatic: Reports: As per HPI. Denies: Anemia, Blood Clots, Easy bleeding, Easy bruising, Swollen glands Past Medical History - SOCIAL HISTORY Smoking Status: Former smoker Drug Use: None - RESPIRATORY Hx Respiratory Disorders: Yes Hx Sleep Apnea: Yes Hx of CPAP: Yes Comment:: seasonal allergies - CARDIOVASCULAR Hx Cardio Disorders: Yes Hx Hypertension: No - NEURO Hx Neuro Disorders: Yes Hx Headaches: Yes Hx of Migraines: Yes (last one 2 days ago) - GI Hx GI Disorders: Yes Hx Reflux: Yes Hx of Polyps: Yes - Hx Genitourinary Disorders: Yes Hx Bladder Problem: Yes Hx Prostate Problems: Yes - ENDOCRINE Hx Endocrine Disorders: No - MUSCULOSKELETAL Hx Musculoskeletal Disorders: No - PSYCH Hx Psych Problems: Yes Hx Anxiety: Yes Hx Depression: Yes - HEMATOLOGY/ONCOLOGY Hx Hematology/Oncology Disorders: Yes Hx Cancer: Yes (skin-basal, squamous cell) Family Medical History Hx Cancer: Mother Hx Heart Disease: Father Hx HTN: Mother Hx Stroke: Father Physical Exam - General General Appearance: Alert, Oriented x3, Cooperative, No acute distress - Head Head exam: Normal inspection - Eye Eye exam: Normal appearance, PERRL Pupils: Normal accommodation - ENT ENT exam: Normal exam, Mucous membranes moist, Normal external ear exam, Normal orophraynx, TM's normal bilaterally Ear exam: Normal external inspection. negative: External canal tenderness Nasal Exam: Normal inspection. negative: Discharge, Sinus tenderness Mouth exam: Normal external inspection, Tongue normal Teeth exam: Normal inspection. negative: Dental caries Throat exam: Normal inspection. negative: Tonsillar erythema, Tonsillar exudate - Neck Neck exam: Normal inspection, Full ROM. negative: Tenderness - Respiratory Respiratory exam: Normal lung sounds bilaterally. negative: Respiratory distress - Cardiovascular Cardiovascular Exam: Regular rate, Normal rhythm, Normal heart sounds - GI/Abdominal GI/Abdominal exam: Soft, Normal bowel sounds. negative: Tenderness - Rectal Rectal exam: Deferred - exam: Deferred - Extremities Extremities exam: Normal inspection, Full ROM, Normal capillary refill, Other (swelling left lower leg). negative: Tenderness - Back Back exam: Reports: Normal inspection, Full ROM. Denies: Muscle spasm, Rash noted, Tenderness - Neurological Neurological exam: Alert, Normal gait, Oriented X3, Reflexes normal - Psychiatric Psychiatric exam: Normal affect, Normal mood - Skin Skin exam: Dry, Intact, Normal color, Warm Type of lesion: Rash Medical Decision Making - Data Complexity MDM Data: X-Ray Ordered and/or Reviewed (venous doppler neg for DVT) Disposition Clinical Impression: Left leg swelling Cellulitis Qualifiers: Site of cellulitis: extremity Site of cellulitis of extremity: lower extremity Laterality: left Qualified Code(s): L03.116 - Cellulitis of left lower limb Disposition: Home, Self-Care Condition: (1) Good Instructions: Leg Edema (ED) Additional Instructions: follow up with Dr. Hudson in 5 days Prescriptions: Sulfamethoxazole/Trimethoprim [Bactrim Ds Tablet] 1 each PO BID #20 tablet Cephalexin [Keflex] 500 mg PO QID #40 cap Forms: Patient Portal Access Time of Disposition: 17:24 Quality - Quality Measures Quality Measures: N/A - Blood Pressure Screening Does Patient Have Any of the Following: No Blood Pressure Classification: Hypertensive Reading Systolic Measurement: 141 Diastolic Measurement: 93 Screening for High Blood Pressure: < Pre-Hypertensive BP, F/U Documented > [G8950] Pre-Hypertensive Follow-up Interventions: Referral to alternative/primary care provider.
--- NOTE | 2019-05-06 13:19 | US VENOUS DOPPLER REPORT ---
EXAM: LEFT LOWER EXTREMITY VENOUS DOPPLER ULTRASOUND HISTORY: REDNESS AND SWELLING AT THE LEVEL OF THE LEFT ANKLE. TECHNIQUE: Ramirez scale, color Doppler and Duplex Doppler evaluation of the deep venous structures of the left lower extremity were performed from the level of the external iliac vein through the calf veins. Imaging of the external iliac, common femoral and greater saphenous veins on the right also performed. Comparison: Venous Doppler examination of the left lower extremity dated 04/16/18. FINDINGS: The external iliac, common femoral, deep femoral, greater saphenous, superficial femoral and popliteal veins on the left are anechoic and completely compressible. Normal venous waveforms are noted at all of these levels and these waveforms are augmentable. Ramirez scale and color Doppler imaging of the peroneal, posterior tibial, and anterior tibial veins does not demonstrate thrombosis. no evidence of thrombosis in the external iliac, common femoral, nor greater saphenous veins on the right. IMPRESSION: NO EVIDENCE OF DEEP VENOUS THROMBOSIS WITHIN THE LEFT LOWER EXTREMITY. JOB NUMBER: [id number] [facility]
== END 2019-05-05 17:33 | disposition home or self-care (01) ==
LOC: ER 16:03
DX: L03.116 Cellulitis of left lower limb (principal); Z87.891 Personal history of nicotine dependence
CPT/HCPCS: 99283

== ENCOUNTER 2019-10-01 08:08 | Emergency (ER) | payer BC ==
[2019-10-01] MEDS ORDERED: POLYMYXIN B SULF/TRIMETHOPRIM 10ML BTL OPTH ONE (08:25)
--- NOTE | 2019-10-01 08:30 | Emergency Department Record ---
History of Present Illness - General Chief complaint: Eye Problem Stated complaint: EYES RED Time Seen by Provider: 10/01/19 08:24 Source: Patient Mode of Arrival: Ambulatory Limitations: No limitations - History of Present Illness Initial comments: 53 yo male presents with left eye greater than right drainage and redness since . He has crusting and drainage in the mornings. No vision changes. No fever. He has developed a productive cough as well. No fever. No chest pain. No abdominal pain, nausea or vomiting. He does not wear contacts. No chronic eye disease. MD chief complaint: Eye redness Onset/Timin -: Days(s) Location: Left eye If Injury: None Eye Symptoms: Discharge, Redness Severity: Moderate Consistency: Constant Context: Other Associated Symptoms: Cough Treatments Prior to Arrival: None - Related Data Home Medications Medication Instructions Recorded Confirmed Last Taken Tadalafil 5 mg PO DAILY 10/01/19 10/01/19 10/01/19 Previous Rx's Medication Instructions Recorded Azithromycin [Zithromax] 250 mg PO DAILY #6 tab 10/01/19 Methylprednisolone [Medrol Dose 4 mg PO DAILY #1 tab.ds.pk 10/01/19 Pack] Allergies Allergy/AdvReac Type Severity Reaction Status Date / Time No Known Drug Allergies Allergy Verified 10/01/19 08:26 Travel Screening - Travel/Exposure Within Last 30 Days Have you traveled within the last 30 days?: No - Travel/Exposure Within Last Year Have you traveled outside the [place] in the last year?: No - Additonal Travel Details Have you been exposed to anyone with a communicable illness?: No - Travel Symptoms Symptom Screening: None Review of Systems Constitutional: Denies: Chills, Fever, Weakness Eyes: Reports: Eye discharge. Denies: Eye pain, Vision change ENT: Reports: Congestion. Denies: Ear pain Respiratory: Reports: Cough. Denies: Dyspnea, Hemoptysis, Wheezes Cardiovascular: Denies: Chest pain, Palpitations, Syncope Endocrine: Denies: Fatigue, Polydipsia, Polyuria Gastrointestinal: Denies: Abdominal pain, Diarrhea, Nausea, Vomiting Genitourinary: Denies: Dysuria, Frequency, Hematuria Musculoskeletal: Denies: Arthralgia, Back pain, Myalgia Skin: Denies: Bruising, Change in color, Rash Neurological: Denies: Headache Psychiatric: Denies: Anxiety Hematological/Lymphatic: Denies: Easy bleeding, Easy bruising Past Medical History - SOCIAL HISTORY Smoking Status: Former smoker Alcohol Use: Rare Drug Use: None - RESPIRATORY Hx Respiratory Disorders: Yes Hx Sleep Apnea: Yes Hx of CPAP: Yes Comment:: seasonal allergies - CARDIOVASCULAR Hx Cardio Disorders: Yes Hx Hypertension: No - NEURO Hx Neuro Disorders: Yes Hx Headaches: Yes Hx of Migraines: Yes (last one 2 days ago) - GI Hx GI Disorders: Yes Hx Reflux: Yes Hx of Polyps: Yes - Hx Genitourinary Disorders: Yes Hx Bladder Problem: Yes Hx Prostate Problems: Yes - ENDOCRINE Hx Endocrine Disorders: No - MUSCULOSKELETAL Hx Musculoskeletal Disorders: No - PSYCH Hx Psych Problems: Yes Hx Anxiety: Yes Hx Depression: Yes - HEMATOLOGY/ONCOLOGY Hx Hematology/Oncology Disorders: Yes Hx Cancer: Yes (skin-basal, squamous cell) Family Medical History Any Significant Family History?: No Hx Cancer: Mother Hx Heart Disease: Father Hx HTN: Mother Hx Stroke: Father Physical Exam - General General Appearance: Alert, Oriented x3, Cooperative, No acute distress Limitations: No limitations - Head Head exam: Atraumatic, Normal inspection - Eye Eye exam: PERRL, Conjunctival injection. negative: Normal appearance, Periorbital swelling, Periorbital tenderness Pupils: Normal accommodation. negative: Irregular, Unequal - ENT ENT exam: Normal exam Ear exam: Normal external inspection Nasal Exam: Normal inspection Mouth exam: Normal external inspection Teeth exam: Normal inspection - Neck Neck exam: Normal inspection - Respiratory Respiratory exam: Normal lung sounds bilaterally. negative: Accessory muscle use, Decreased breath sounds, Respiratory distress, Rhonchi, Stridor, Wheezes - Cardiovascular Cardiovascular Exam: Regular rate, Normal rhythm, Normal heart sounds - GI/Abdominal GI/Abdominal exam: Soft. negative: Tenderness - Rectal Rectal exam: Deferred - exam: Deferred - Extremities Extremities exam: negative: Calf tenderness, Pedal edema - Back Back exam: Denies: CVA tenderness (R), CVA tenderness (L) - Neurological Neurological exam: Alert, Oriented X3 - Psychiatric Psychiatric exam: Normal affect, Normal mood - Skin Skin exam: Dry, Intact, Normal color, Warm Course Vital Signs 10/01/19 08:13 Temperature 97.4 F L Pulse Rate 80 Respiratory 16 Rate Blood Pressure 126/74 Pulse Ox 97 - Reevaluation(s) Reevaluation #1: 10/01/19 08:27 No stain uptake of either eye. Clear AC Disposition Disposition: Discharge Clinical Impression: Conjunctivitis Qualifiers: Conjunctivitis type: unspecified Laterality: bilateral Qualified Code(s): H10.9 - Unspecified conjunctivitis Disposition: Home, Self-Care Condition: (1) Good Instructions: Acute Bronchitis (ED), Conjunctivitis (ED) Additional Instructions: Review this ER visit and the tests performed with your family doctor Call your doctor for the next available follow up appointment Return to the ER for a recheck immediately if worse, any new concerns or questions Take the prescriptions provided as directed Prescriptions: Methylprednisolone [Medrol Dose Pack] 4 mg PO DAILY #1 tab.ds.pk Azithromycin [Zithromax] 250 mg PO DAILY #6 tab Forms: Patient Portal Access Time of Disposition: 08:28 Quality - Quality Measures Quality Measures: N/A - Blood Pressure Screening Does Patient Have Any of the Following: No Blood Pressure Classification: Pre-Hypertensive BP Reading Systolic Measurement: 126 Diastolic Measurement: 74 Screening for High Blood Pressure: < Pre-Hypertensive BP, F/U Documented > [G8950] Pre-Hypertensive Follow-up Interventions: Referral to alternative/primary care provider.
== END 2019-10-01 08:38 | disposition home or self-care (01) ==
LOC: ER 08:08
DX: H10.9 Unspecified conjunctivitis (principal); R05 Cough; Z87.891 Personal history of nicotine dependence
CPT/HCPCS: 99283 ×2; J3490